=== PATIENT | female | born 1980 | race Caucasian/White ===

== ENCOUNTER 2017-05-15 11:40 | Emergency (ER) | payer MEDICAID ==
[~2017-05-15] VITALS: Ht 157.5 cm; Wt 50.6 kg
[2017-05-15 12:04] VITALS: BP 112/77
[2017-05-15] MEDS ORDERED: LORazepam 2 MG/ML, 1ML IVPush ONE (12:30)
[2017-05-15] MEDS ORDERED: SODIUM CHLORIDE 0.9% 1,000ML IVBOLUS ONE (12:30)
[2017-05-15] MEDS ORDERED: ASPIRIN 81 MG TABLET CHEW PO ONE (12:30)
[2017-05-15 12:43] LABS: BASOPHILS # (AUTO) 0.02 x10^3/uL (0-0.1); BASOPHILS % (AUTO) 0 % (0-1); EOSINOPHILS % (AUTO) 0 % (1-7); LYMPHOCYTES # (AUTO) 1.24 x10^3/uL (1-3.4); LYMPHOCYTES % (AUTO) 10 % (22-44); MD NO; MEAN CORPUSCULAR HEMOGLOBIN 33.3 pg (27.0-34.8); MEAN CORPUSCULAR HGB CONC 34.5 g/dL (32.4-35.8); MEAN CORPUSCULAR VOLUME 96.3 fL (80-100); MEAN PLATELET VOLUME 7.7 fL (7.4-10.4); MONOCYTES # (AUTO) 0.06 x10^3/uL (0.2-0.8); MONOCYTES % (AUTO) 1 % (2-9); NEUTROPHILS # (AUTO) 10.96 x10^3/uL (1.8-6.8); NEUTROPHILS % (AUTO) 89 % (42-75); PLATELET COUNT 374 x10^3/uL (130-400); RED CELL DISTRIBUTION WIDTH 13.7 % (9.6-15.2)
[2017-05-15 12:53] LABS: ALBUMIN 4.7 g/dL (3.4-5.0); ANION GAP 10 mmol/L (5-15); CALCIUM 9.2 mg/dL (8.5-10.1); CHLORIDE 103 mmol/L (98-107); CREATININE 0.74 mg/dL (0.55-1.02)
[2017-05-15 12:57] LABS: TROPONIN I < 0.015 ng/mL (0.000-0.045)
[2017-05-15] MEDS ORDERED: LORazepam 1MG TABLET ONE (14:06)
[2017-05-15] MEDS ORDERED: ASPIRIN 81 MG TABLET CHEW ONE (14:07)
== END 2017-05-15 14:37 | disposition home or self-care (01) ==
LOC: ED 13:00
DX: F41.9 Anxiety disorder, unspecified (principal); F15.90 Other stimulant use, unspecified, uncomplicated; F17.210 Nicotine dependence, cigarettes, uncomplicated
CPT/HCPCS: 36415; 71046; 80048; 82040; 84484; 85025; 93005; 99285

== ENCOUNTER 2017-06-09 16:44 | Emergency (ER) | payer MEDICAID ==
[~2017-06-09] VITALS: Ht 152.4 cm; Wt 53.9 kg
[2017-06-09 16:59] VITALS: BP 103/67
[2017-06-09 18:07] LABS: MICROSCOPIC AUTO
[2017-06-09 18:20] LABS: CULTURE INDICATED? YES
[2017-06-09] MEDS ORDERED: PHENAZOPYRIDINE 200 MG TABLET PO ONE (19:00)
[2017-06-09] MEDS ORDERED: PHENAZOPYRIDINE 200 MG TABLET ONE (19:03)
== END 2017-06-09 19:28 | disposition home or self-care (01) ==
LOC: ED 19:22
DX: N30.01 Acute cystitis with hematuria (principal)
CPT/HCPCS: 81001; 87077; 87086; 87186; 99284